=== PATIENT | female | born 1935 | race Caucasian/White ===

== ENCOUNTER 2020-10-01 07:39 | Day surgery (SDC) | payer MEDICARE, BC ==
[~2020-10-01 07:39] MED LIST: Lactated Ringers 1,000 ML IV SCH; Lidocaine 1%/Sod Bicarbonate in NS 8.4% 1 ML Syringe IDERM PRN; Morphine 8 MG, EPINEPHrine 0.3 MG, Cefuroxime 750 MG, Ketorolac 30 MG, Sodium Chloride ... PRN; Sodium Chloride 0.9% 10 ML Syringe FLUSH PRN
[2020-10-01] MEDS ORDERED: Albuterol 0.083% 2.5 MG/3 ML Neb Soln NEB SCH (08:40)
[2020-10-01] MEDS ORDERED: Albuterol 0.083% 2.5 MG/3 ML Neb Soln ONE (08:48)
[2020-10-01] MEDS ORDERED: Midazolam 1 MG/ML 2 ML SDV ONE (09:31)
[2020-10-01] MEDS ORDERED: Propofol 200 MG/20 ML SDV ONE ×2 (09:31→11:06)
[2020-10-01] MEDS ORDERED: Lidocaine 1% 4 ML ONE (09:31)
[2020-10-01] MEDS ORDERED: ceFAZolin 1 GM Vial ONE (09:33)
--- NOTE | 2020-10-01 09:38 | PCM.PREANE ---
Preanesthetic Assessment - Procedure Proposed Procedure: Left total knee arthroplasty - Anesthesia/Transfusion/Family Hx Anesthesia History: Prior Anesthesia Without Reaction Family History of Anesthesia Reaction: No Transfusion History: No Prior Transfusion(s) Intubation History: Unknown - Review of Systems General: No Symptoms, Other (Irritated throat from smoke in the air) Pulmonary: No Symptoms Cardiovascular: No Symptoms, Other (Greater than 4 METS) Gastrointestinal: Difficulty Swallowing (Needed Speech therapy following neck surgery) Neurological: No Symptoms Other: Reports: Easy Bleeding, Easy Bruising, Anxiety - Physical Assessment NPO Status Date: 09/30/20 NPO Status Time: 18:30 Vital Signs: Last Vital Signs Temp 97.9 F 10/01/20 08:15 Pulse Resp 17 10/01/20 08:15 BP 146/55 H 10/01/20 08:15 Pulse Ox 100 10/01/20 08:40 HR 60 Height: 1.47 m Weight: 55.6 kg ASA Class: 3 Mental Status: Alert & Oriented x3 Airway Class: Mallampati = 2 Dentition: Reports: [place](s), Implants, Caries Thyro-Mental Finger Breadths: 3 Mouth Opening Finger Breadths: 3 ROM/Head Extension: Limited/Partial Lungs: Clear to Auscultation, Normal Respiratory Effort Cardiovascular: Regular Rate, Regular Rhythm, No Murmurs - Lab Values: Labs within limits and acceptable to proceed - Imaging/EKG Impressions: Chest xray- no acute findings EKG SB HR 56 - Allergies Allergies/Adverse Reactions: Allergies Allergy/AdvReac Type Severity Reaction Status Date / Time codeine Allergy Cannot Verified 10/01/20 08:50 Remember meperidine [From Demerol] Allergy Cannot Verified 10/01/20 08:50 Remember morphine Allergy Cannot Verified 10/01/20 08:50 Remember Penicillins Allergy Cannot Verified 10/01/20 08:50 Remember procaine [From Novocain] Allergy Cannot Verified 10/01/20 08:50 Remember - Blood Blood Available: No Product(s) Available: None - Anesthesia Plan Pre-Op Medication Ordered: None Beta [place]: Metoprolol Med Last Dose Date: 10/01/20 Med Last Dose Time: 05:30 - Acknowledgements Anesthesia Type Planned: General Anesthesia, Spinal Pt an Appropriate Candidate for the Planned Anesthesia: Yes Alternatives and Risks of Anesthesia Discussed w Pt/Guardian: Yes Pt/Guardian Understands and Agrees with Anesthesia Plan: Yes Additional Comments: Patient requested to try to complete a spinal. Discussed risks for both general and spinal. And due to patient's history of lumbar spine surgery and easy bleeding and bruising, discussed with patient that we would try but if not completed on first attempt, then will convert patient to a general. PreAnesthesia Questionnaire HEENT History: Reports: Hard of Hearing, Impaired Vision, Other (See Below) Other HEENT History: wears glasses, has hearing aids Cardiovascular History: Reports: High Cholesterol, Hypertension, CT Other Cardiovascular History: CAD stent placed in 2005 Respiratory History: Reports: Bronchitis, Recurrent Gastrointestinal History: Reports: GERD Genitourinary History: Reports: None NUTRITION SPECIALIST History: Reports: Other (See Below) Other OB/BYN History: atrophic vaginitis Musculoskeletal History: Reports: Osteoarthritis, Other (See Below) Other Musculoskeletal History: myofascitis, infected finger joint, fibula fracture, lumbar spine pain, scarolitis, L5-S1 left radiculopathy, lumar spinal stenosis Neurological History: Reports: Other (See Below) Other Neuro History: sacroilitis, spinal stenosis, back surgery Psychiatric History: Reports: Anxiety Endocrine/Metabolic History: Reports: Osteopenia Hematologic History: Reports: None Immunologic History: Reports: None Oncologic (Cancer) History: Reports: None Dermatologic History: Reports: Other (See Below) Other Dermatologic History: sporotrichosis - Past Surgical History Head Surgeries/Procedures: Reports: None HEENT Surgical History: Reports: None, Cataract Surgery Cardiovascular Surgical History: Reports: None, Other (See Below) Other Cardiovascular Surgeries/Procedures: LAD stent Respiratory Surgical History: Reports: None GI Surgical History: Reports: Appendectomy, Cholecystectomy, Colonoscopy Female Surgical History: Reports: Breast Biopsy, Section, Hysterectomy Male Surgical History: Reports: None Endocrine Surgical History: Reports: None Neurological Surgical History: Reports: C-Spine, Other (See Below) Other Neurological Surgeries/Procedures: cervical fusion Musculoskeletal Surgical History: Reports: Carpal Tunnel, Knee Replacement, Other (See Below) Other Musculoskeletal Surgeries/Procedures:: right carpal tunnel release, right total knee replacement, right shoulder surgery, tail bone surgery Oncologic Surgical History: Reports: None Dermatological Surgical History: Reports: None - Past Imaging History Past Imaging History: Reports: Other (See Below) (Stress test 2017 was normal) - SUBSTANCE USE Tobacco Use Status *Q: Never Tobacco User Second Hand Smoke Exposure: No Days Per Week of Alcohol Use: 0 Number of Drinks Per Day: 0 Total Drinks Per Week: 0 Recreational Drug Use History: No - HOME MEDS Home Medications: Home Meds Albuterol [Ventolin HFA] 1 puff INH QID PRN 09/30/20 [History] Cholecalciferol (Vitamin D3) [Vitamin D3] 2,000 unit PO DAILY 09/30/20 [History] Escitalopram Oxalate [Lexapro] 10 mg PO DAILY 09/30/20 [History] FA/Lycopene/Lut/MV,Ca,Iron,Min [Centrum] 1 tab PO DAILY 09/30/20 [History] Fluticasone Propionate [Flonase] 1 dose NASBOTH DAILY 09/30/20 [History] Losartan [Cozaar] 25 mg PO QPM 09/30/20 [History] Metoprolol Succinate 25 mg PO DAILY 09/30/20 [History] Nitroglycerin [Nitrostat] 0.4 mg SL ASDIRECTED PRN 09/30/20 [History] Silver Sulfadiazine [Silvadene 1% Cream 20 GM] 1 dose TOP ASDIRECTED PRN 09/30/20 [History] Simvastatin [Zocor] 20 mg PO DAILY 09/30/20 [History] Triamcinolone Acetonide [Triamcinolone Acetonide 0.1% Crm] 1 dose TOP BID PRN 09/30/20 [History] methocarbamoL [Methocarbamol] 500 mg PO TID PRN 09/30/20 [History] Aspirin [Aspirin EC] 325 mg PO BID #84 tab 10/01/20 [Rx] Hydrocodone/Acetaminophen [HYDROcodone-Acetaminophen 5-325 MG] 1 - 2 each PO Q6H PRN #40 tablet 10/01/20 [Rx] Ondansetron [Zofran] 4 mg PO Q6H PRN #10 tab 10/01/20 [Rx] - CURRENT (IN HOUSE) MEDS Current Meds: Current Medications Albuterol (Albuterol 0.083% 2.5 Mg/3 Ml Neb Soln) 2.5 mg NEB ONETIME KANCHAN Stop: 10/01/20 18:00 Morphine Sulfate 8 mg/Epinephrine HCl 0.3 mg/Cefuroxime Sodium 750 mg/Ketorolac Tromethamine 30 mg/Sodium Chloride 7.9 ml 0 mg .XX ASDIRECTED PRN PRN Reason: Pain Stop: 10/01/20 23:00 Lactated Ringer's (Ringers, Lactated) 1,000 mls @ 125 mls/hr IV ASDIRECTED KANCHAN Stop: 10/01/20 23:00 Last Admin: 10/01/20 08:30 Dose: 125 mls/hr Documented by: Lidocaine/Sodium Bicarbonate (Lidocaine 1%/Sod Bicarbonate In Ns 8.4% 1 Ml Syringe) 0.25 ml IDERM ONETIME PRN PRN Reason: Prior to IV Start Stop: 10/01/20 18:00 Last Admin: 10/01/20 08:30 Dose: 0.25 ml Documented by: Sodium Chloride (Sodium Chloride 0.9% 10 Ml Syringe) 10 ml FLUSH ASDIRECTED PRN PRN Reason: Keep Vein Open Stop: 10/01/20 18:00 Discontinued Medications Albuterol (Albuterol 0.083% 2.5 Mg/3 Ml Neb Soln) Confirm Administered Dose 2.5 mg .ROUTE .STK-MED ONE Stop: 10/01/20 08:49 Last Admin: 10/01/20 08:51 Dose: 2.5 mg Documented by: Morphine Sulfate 8 mg/Epinephrine HCl 0.3 mg/Cefuroxime Sodium 750 mg/Ketorolac Tromethamine 30 mg/Sodium Chloride 7.9 ml 0 mg .XX ASDIRECTED PRN PRN Reason: Pain Stop: 09/30/20 16:00 Lidocaine HCl (Xylocaine-Mpf 1%) Confirm Administered Dose 4 mls @ as directed .ROUTE .STK-MED ONE Stop: 10/01/20 09:32 Propofol (Propofol 200 Mg/20 Ml Sdv) Confirm Administered Dose 200 mg .ROUTE .STK-MED ONE Stop: 10/01/20 09:32 Tranexamic Acid (Tranexamic Acid 1,000 Mg/10 Ml Amp) Confirm Administered Dose 1,000 mg .ROUTE .STK-MED ONE Stop: 10/01/20 09:19 Vancomycin HCl (Vancomycin 1 Gm Sdv) Confirm Administered Dose 1 gm .ROUTE .STK- MED ONE Stop: 10/01/20 09:19
[2020-10-01] MEDS ORDERED: Ropivacaine 0.5% 5 MG/ML 30 ML SDV ONE (10:59)
[2020-10-01] MEDS ORDERED: EPINEPHrine 1 MG/ML SDV ONE (10:59)
[2020-10-01] MEDS ORDERED: Ondansetron 4 MG/2 ML SDV IVPUSH PRN (11:08)
[2020-10-01] MEDS ORDERED: Lactated Ringers 1,000 ML ONE (11:14)
[2020-10-01] MEDS: Morphine 8 MG, EPINEPHrine 0.3 MG, Cefuroxime 750 MG, Ketorolac 30 MG, Sodium Chloride ... PRN ×10 (11:19→11:44)
[2020-10-01] MEDS: Vancomycin 1 GM SDV ONE ×2 (11:20→11:50)
[2020-10-01] MEDS ORDERED: Ondansetron 4 MG/2 ML SDV ONE (11:50)
[2020-10-01] MEDS ORDERED: fentaNYL 100 MCG/2 ML SDV ONE (11:56)
--- NOTE | 2020-10-01 12:18 | PCM.POSTAN ---
POST ANESTHESIA ASSESSMENT - MENTAL STATUS Mental Status: Alert, Oriented - VITAL SIGNS Vital Signs: Last Vital Signs Temp 36.6 C 10/01/20 08:15 Pulse Resp 17 10/01/20 08:15 BP 146/55 H 10/01/20 08:15 Pulse Ox 100 10/01/20 08:40 - RESPIRATORY Respiratory Status: Respiratory Rate WNL, Airway Patent, O2 Saturation Stable - CARDIOVASCULAR CV Status: Pulse Rate WNL, Blood Pressure Stable - GASTROINTESTINAL GI Status: No Symptoms - PAIN Pain Score: 4 - POST OP HYDRATION Hydration Status: Adequate & Stable
--- NOTE | 2020-10-01 12:57 | PCM48HPAN ---
Post Anesthesia Note - EVALUATION WITHIN 48HRS OF ANESTHETIC Vital Signs in Normal Range: Yes Patient Participated in Evaluation: Yes Respiratory Function Stable: Yes Airway Patent: Yes Cardiovascular Function Stable: Yes Hydration Status Stable: Yes Pain Control Satisfactory: Yes Nausea and Vomiting Control Satisfactory: Yes Mental Status Recovered: Yes Vital Signs: Last Vital Signs Temp 36.7 C 10/01/20 12:50 Pulse 51 L 10/01/20 12:50 Resp 17 10/01/20 12:50 BP 148/62 H 10/01/20 12:50 Pulse Ox 96 10/01/20 12:50
--- NOTE | 2020-10-01 13:04 | PCM.PRNOTE ---
- Free Text/Narrative Note: Left selective femoral nerve block at the adductor canal for post-procedure pain control under US guidance requested by Dr. Fuller. Time Out: 1242 Start: 1243 End: 1250 Chart reviewed. Consent signed. Questions answered. Appropriate monitors applied. Time out performed. Left mid-shaft femur identified with ultrasound, scanning medially of femur, the femoral artery in the adductor canal visualized, and the femoral nerve located laterally to the artery. The skin was prepped lateral to the ultrasound probe with chlorahexadine times two. The 21ga 4 insulated block needle was inserted under direct ultrasound guidance into the adductor canal. 20mL of 0.5% ropivacaine with 1:200,000 epinephrine was injected circumferentially around the nerve with intermittent negative aspiration noted. Patient tolerated the procedure well. Sterile technique noted along with sterile gloves, mask, and sterile probe cover. See picture on progress note and vital signs on nurses notes. Block completed in PACU. Ryanne Barry CRNA
--- NOTE | 2020-10-01 14:42 | CR ---
Left knee: AP and crosstable lateral views of the left knee were obtained. Comparison: Prior CT left knee study of 09/16/20. Knee prosthesis is noted. Patellar prosthesis is noted. Components are aligned. Soft tissue air is noted. No acute underlying bony abnormality is seen. Vascular calcification is noted. Impression: 1. Satisfactory postop radiographic appearance of recently placed left knee prostheses. Diagnostic code #2
--- NOTE | 2020-10-14 17:13 | PCM.OPNOTE ---
- General Post-Op/Procedure Note Date of Surgery/Procedure: 10/01/20 Operative Procedure(s): left total knee arthroplasty with [employer] robot[employer] Pre Op Diagnosis: left knee osteoarthrosis Post-Op Diagnosis: Same Anesthesia Technique: Local, MAC, Spinal Primary Surgeon: Tj Fuller Anesthesia Provider: Wilmer Delatorre Industrial Engineering Intern: Bobbi Majano Industrial Engineering Intern: Gwendolyn Argawal EBL in mLs: 5 Complications: None Condition: Good Free Text/Narrative:: 2 cemented CR femur 1 tibia 9mm 29x9
--- NOTE | 2020-10-14 17:41 | OR ---
DATE OF OPERATION: 10/01/2020 SURGEON: Tj Fuller MD OPERATION PERFORMED: Left total knee arthroplasty with [employer] robot[employer]. PREOPERATIVE DIAGNOSIS: Left knee osteoarthrosis. POSTOPERATIVE DIAGNOSIS: Left knee osteoarthrosis. ANESTHESIA: Local MAC with spinal. ANESTHESIA PROVIDER: Ye Davila. VULNERABILITY ASSESSMENT ANALYST: Bobbi Majano PA-C; and Gwendolyn Agrawal LPN. ESTIMATED BLOOD LOSS: 5 mL. COMPLICATIONS: None. CONDITION: Stable. IMPLANTS: 1. [place] size 2 cemented CR femur. 2. [place] size 1 cemented universal tibial baseplate. 3. Gabriel size 1 9 mm PS X3 polyethylene. 4. Gabriel size 29 x 9 mm cemented asymmetric patella. DESCRIPTION OF PROCEDURE: The patient was identified in the preop holding area. Proper site was marked and identified by the surgeon. The patient was taken back to the operating theater where after adequate anesthesia, the patient's left lower extremity had a nonsterile tourniquet applied and it was sterilely prepped and draped in the usual sterile fashion. OR time-out was performed. The patient received 2 g IV Ancef . Leg dykes was then applied to the left lower extremity. At this time, the left lower extremity was exsanguinated. Tourniquet was insufflated to 250 mmHg . Standard anterior incision was made. Medial parapatellar arthrotomy was created. Deep fibers of the MCL were raised as well as anterior fat pad was resected. Attention was turned to the patella. Patella measured a 21 mm; it was resected to a 13 mm for 29 x 9 mm patella. Drill holes were then drilled. Attention was then turned to the femur. Two 4.0 pins were placed intra- incisionally for the [employer] robotic array and then 2 more were placed on the tibia 3 fingerbreadths below the tibial tubercle. The [employer] robotic arrays were placed on both the femur and the tibia then at this time as well as checkpoints on the femur and tibia. Hip center rotation was then obtained. The medial and lateral malleoli were marked. At this time, 40 points were obtained off the femur and the tibia for the [employer] robotic plan. The patient's knee was brought to full extension. Varus and valgus stresses were applied and then into 90 degrees of flexion with a curved osteotome. Varus and valgus stresses were applied. At this time, [employer] robotic plan was done to 18 mm gaps in both flexion and extension. Gabriel [employer] robotic arm was then brought in. A straight saw blade was then used for the tibial cut, the anterior femoral cut, the anterior chamfer cut, and the posterior femoral cut. All bony fragments were removed. Saw blade was then switched out and the distal femoral cut as well as the posterior chamfer cut was completed. At this time, medial and lateral menisci were resected as well as any posterior osteophytes. A size 1 mm trial tibia was then placed, size 2 mm trial femur was placed, and a size 1 9 mm polyethylene trial liner was placed. The patient's knee was brought to full extension and flexion. Varus and valgus stresses were applied, was found to be stable with no instability. No signs of liftoff or loosening were noted. At this time, box cut was completed on the femur. The pins were removed from the femur and the tibia as well as the arrays and the checkpoints. Cement was mixed on the back table. All cut surfaces were irrigated with pulse lavage irrigation with Ancef and then completely dried. Once the cement was ready, the [place] size 1 mm cemented [place] tibial base plate having been previously stamped and drilled, was then cemented in place on the tibia. The Gabriel size 2 mm cemented femur was cemented into place. The patient had a [place] size 1 9 mm polyethylene insert placed. The patient's knee was brought to full extension. Excess cement was removed. A [place] size 29 x 9 mm cemented asymmetric patella was then cemented into place. 1 L of pulse lavage irrigation with Ancef was irrigated through the knee along with 400 mL of IrriSept irrigation. Periarticular injection was completed. Topical tranexamic acid and vancomycin powder were applied. A #2 barbed suture was used for closure of the medial parapatellar arthrotomy in flexion. 2-0 Vicryl and Stratafix were used for subcutaneous closure. Prineo was used for cutaneous closure. The patient had a sterile soft dressing applied. The tibial holes were closed with nylon, and this was also covered with a sterile soft dressing. The patient had an MOISES wrap applied and was sent to PACU in stable condition. The patient tolerated the procedure well. MMODAL /[id number]
== END 2020-10-01 15:32 | disposition home or self-care (01) ==
LOC: JD.SDS 07:39
PROVIDERS: ATTEND Orthopaedic Surgery
DX: M17.12 Unilateral primary osteoarthritis, left knee (principal); M25.762 Osteophyte, left knee; I10 Essential (primary) hypertension; I25.10 Atherosclerotic heart disease of native coronary artery without angina pectoris; M85.80 Other specified disorders of bone density and structure, unspecified site; Z88.0 Allergy status to penicillin; Z95.5 Presence of coronary angioplasty implant and graft; Z79.82 Long term (current) use of aspirin; Z79.899 Other long term (current) drug therapy; Z91.040 Latex allergy status
CPT/HCPCS: 27447; 73560; 94640; 97116; 97161; C1713; C1776; J0171; J0690; J0697; J1885; J2250; J2270; J2405; J2704; J2795; J3010; J3370; J7120; 01402; 64450; 76942; 99100